=== PATIENT | male | born 1980 | race Caucasian/White ===

== ENCOUNTER 2017-06-04 21:18 | Inpatient (IN) | payer MEDICAID ==
[~2017-06-04] VITALS: Ht 177.8 cm; Wt 77.1 kg
[2017-06-05 01:32] LABS: BASOPHIL % 0.4 % (0-2); PLATELET COUNT 228 x10^3mcL (130-400); RED CELL DISTRIBUTION WIDTH 13.9 % (11.5-14.5)
[2017-06-05 01:42] LABS: CALCIUM 8.4 mg/dL (8.5-10.1); CHLORIDE SERUM 108 mmol/L (98-107); CREATININE SERUM 0.9 mg/dL (0.7-1.3); GFR1 > 60 mL/min; GLUCOSE SERUM 134 mg/dL (74-106); POTASSIUM SERUM 3.2 mmol/L (3.5-5.1); SODIUM SERUM 145 mmol/L (136-145)
[2017-06-05 01:46] LABS: ALBUMIN 3.4 g/dL (3.4-5.0); ALKALINE PHOSPHATASE 60 U/L (46-116); ALT/SGPT 43 U/L (16-63); AST/SGOT 62 U/L (15-37); BILIRUBIN TOTAL 1.05 mg/dL (0.20-1.00); TOTAL PROTEIN, SERUM 6.4 g/dL (6.4-8.2)
[2017-06-05 04:11] LABS: AMPHETAMINE QUAL UR POSITIVE (NEG <=1000)
[2017-06-06 07:24] LABS: MAGNESIUM 1.9 mg/dL (1.8-2.4); PHOSPHOROUS 3.5 mg/dL (2.5-4.9)
[2017-06-06 07:37] LABS: CHOLESTEROL/HDL RATIO 1.7
[2017-06-06 07:47] LABS: T3 TOTAL 1.1 ng/mL
[2017-06-06 08:13] LABS: FREE T4 1.05 ng/dL (0.76-1.46); FREE THYROXINE INDEX 2.2 ug/dL (1.4-4.5); T4(THYROXINE) 5.9 ug/dL (4.7-13.3)
[2017-06-06 08:13] LABS: ALBUMIN 3.4 g/dL (3.4-5.0); ALKALINE PHOSPHATASE 64 U/L (46-116); ALT/SGPT 37 U/L (16-63); AST/SGOT 25 U/L (15-37); CALCIUM 8.6 mg/dL (8.5-10.1); CARBON DIOXIDE 29.3 mmol/L (21-32); CHLORIDE SERUM 108 mmol/L (98-107); CREATININE SERUM 0.9 mg/dL (0.7-1.3); GFR1 > 60 mL/min; GLUCOSE SERUM 109 mg/dL (74-106); POTASSIUM SERUM 4.5 mmol/L (3.5-5.1); SODIUM SERUM 144 mmol/L (136-145); TOTAL PROTEIN, SERUM 6.8 g/dL (6.4-8.2)
[2017-06-06 09:42] LABS: UA SPECIFIC GRAVITY >=1.030 (1.005-1.035); microscopic required? YES; urine erythrocyte NEGATIVE (NEGATIVE)
[2017-06-06 18:30] VITALS: BP 110/59
[2017-06-06 20:03] VITALS: BP 125/73
[2017-06-07 05:30] VITALS: BP 115/70
[2017-06-07 06:47] LABS: BASOPHIL % 0.5 % (0-2); PLATELET COUNT 246 x10^3mcL (130-400); RED CELL DISTRIBUTION WIDTH 14.1 % (11.5-14.5)
[2017-06-07 08:17] LABS: CALCIUM 8.3 mg/dL (8.5-10.1); CARBON DIOXIDE 25.1 mmol/L (21-32); CHLORIDE SERUM 103 mmol/L (98-107); CREATININE SERUM 0.8 mg/dL (0.7-1.3); GFR1 > 60 mL/min; GLUCOSE SERUM 89 mg/dL (74-106); POTASSIUM SERUM 4.1 mmol/L (3.5-5.1); SODIUM SERUM 137 mmol/L (136-145)
[2017-06-07 09:50] VITALS: BP 124/68
[2017-06-07 18:18] VITALS: BP 107/62
[2017-06-07 21:13] VITALS: BP 111/70
[2017-06-08 05:38] VITALS: BP 111/74
[2017-06-08 14:26] VITALS: BP 110/70
[2017-06-08 16:49] VITALS: Ht 177.8 cm; Wt 77.1 kg
[2017-06-08 22:09] VITALS: BP 112/72
[2017-06-09 06:42] VITALS: BP 108/60
[2017-06-09 07:26] VITALS: BP 107/56
[2017-06-09 17:33] VITALS: BP 107/59
[2017-06-09 22:37] VITALS: BP 101/53
[2017-06-10 05:33] VITALS: BP 106/58
[2017-06-10 07:48] VITALS: BP 104/69
[2017-06-10 18:01] VITALS: BP 105/56
[2017-06-10 22:30] VITALS: BP 107/56
[2017-06-11 05:12] VITALS: BP 107/59
[2017-06-11 09:00] VITALS: BP 117/76
[2017-06-11 14:16] VITALS: BP 109/66
[2017-06-11 18:30] VITALS: BP 121/73
[2017-06-11 21:07] VITALS: BP 106/59
[2017-06-12 05:38] VITALS: BP 107/58
[2017-06-12 09:18] VITALS: BP 105/69
[2017-06-12 14:59] VITALS: BP 105/69
== END 2017-06-12 15:18 | disposition home or self-care (01) | DRG 812 ==
LOC: ED 21:18 → DU 06-06 17:25 → MU 06-08 23:46
PROVIDERS: Emergency Medicine Emergency Medical Services; ADMIT Family Medicine
DX: T43.621A Poisoning by amphetamines, accidental (unintentional), initial encounter (principal); G92 Toxic encephalopathy; R45.851 Suicidal ideations; T31.0 Burns involving less than 10% of body surface; F33.2 Major depressive disorder, recurrent severe without psychotic features; S96.911A Strain of unspecified muscle and tendon at ankle and foot level, right foot, initial encounter; D64.9 Anemia, unspecified; S41.112A Laceration without foreign body of left upper arm, initial encounter; T22.262A Burn of second degree of left scapular region, initial encounter; E87.6 Hypokalemia; F41.1 Generalized anxiety disorder; F14.10 Cocaine abuse, uncomplicated; F15.129 Other stimulant abuse with intoxication, unspecified; F12.10 Cannabis abuse, uncomplicated; F10.10 Alcohol abuse, uncomplicated; F17.210 Nicotine dependence, cigarettes, uncomplicated; Z68.24 Body mass index [BMI] 24.0-24.9, adult; Z91.19 Patient's noncompliance with other medical treatment and regimen; Z59.0 Homelessness; X99.1XXA Assault by knife, initial encounter; X10.1XXA Contact with hot food, initial encounter; W19.XXXA Unspecified fall, initial encounter; Y92.89 Other specified places as the place of occurrence of the external cause
CPT/HCPCS: 36415; 83880; 84439; G0480; J2060; J3486; Q0092

== ENCOUNTER 2017-10-19 22:43 | Emergency (ER) | payer OTHER ==
[2017-10-19 22:59] VITALS: BP 137/87
== END 2017-10-19 23:37 | disposition left against medical advice (07) ==
LOC: ED 22:43
DX: F19.10 Other psychoactive substance abuse, uncomplicated (principal); F10.20 Alcohol dependence, uncomplicated; F32.9 Major depressive disorder, single episode, unspecified; Z76.5 Malingerer [conscious simulation]; Z53.20 Procedure and treatment not carried out because of patient's decision for unspecified reasons
CPT/HCPCS: G0480